=== PATIENT | male | born 1990 | race Caucasian/White ===

== ENCOUNTER → 2018-10-26 | Day surgery (SDC) | payer BC ==
[~2018-10-26] MED LIST: AFRIN30 ML; DICYCLOMINE HCL20 MG PO; FENTANYL CITRATE/PF 100MCG/2 ML INJ ONE; FLUTICASONE PRO16 GM INH; MIDAZOLAM HCL 2 MG/2 ML VIAL ONE; PANTOPRAZOLE SO40 MG PO; PROBIOTIC & AC1 EACH PO; PROPOFOL IV EMULSION 10 MG/ML 50 ML VIAL ONE; RANITIDINE HCL150 M1 PO; ZYRTEC10 M3 PO
[2018-10-26 14:55] VITALS: BP 119/80
--- NOTE | 2018-10-26 21:27 | Operative Report ---
DATE OF PROCEDURE: 10/26/2018 SURGEON: Jair Botello MD PROCEDURE: EGD with esophageal dilatation and biopsies. REFERRING PHYSICIAN: Dr. Bryan Laurent. INDICATIONS FOR EGD: Dysphagia, bloating. MEDICATION: The patient was done under MAC, please see anesthesiologist's note. PROCEDURE IN DETAIL: With the patient in left lateral decubitus position, a flexible fiberoptic Olympus gastroscope was introduced into the esophagus under direct visualization without any difficulty. Concentric rings along with some longitudinal furrows were noted, which is consistent with eosinophilic esophagitis, a diagnosis that this patient carries. There was a mild stricture noted at the GE junction that was dilated to size 50-Danish Munoz. The scope was then advanced with ease into the stomach traversing a small sliding hiatal hernia. Mucosa overlying the antrum and the body revealed some patchy erythema, low-grade to moderate edema and biopsies were obtained and sent to stain for H pylori. Pylorus was of normal contour and shape and was intubated with ease and the scope was advanced all the way to the second portion of the duodenum. The mucosa overlying the proximal second portion as well as the duodenal bulb appeared to be within normal limits. The scope was then withdrawn back into the stomach and retroflexed and mucosa overlying the fundus and cardia appeared to be within normal limits. The scope was then straightened out. The stomach was decompressed. The scope was subsequently withdrawn. The patient tolerated procedure well. IMPRESSION: 1. Eosinophilic esophagitis. 2. Esophageal stricture at GE junction dilated to size 50-Danish Munoz. 3. Small hiatal hernia. 4. Gastritis, biopsied. Biopsies sent to stain for H pylori. PLAN: Follow up histology. Initiate Protonix 40 mg one p.o. q.a.m. a.c. and continue Zantac 300 mg p.o. at bedtime. Jair Botello MD [facility] [place] /[id number] cc: Bryan Laurent DO
== END | disposition home or self-care (01) ==
LOC: OR 13:17
PROVIDERS: ATTEND Internal Medicine Gastroenterology
DX: K22.2 Esophageal obstruction (principal); K29.60 Other gastritis without bleeding; K20.0 Eosinophilic esophagitis; K44.9 Diaphragmatic hernia without obstruction or gangrene; K21.9 Gastro-esophageal reflux disease without esophagitis; J45.909 Unspecified asthma, uncomplicated
CPT/HCPCS: 43239; 43450; J2250; J2704